=== PATIENT | female | born 1950 | race African-American/Black ===

== ENCOUNTER → 2022-04-18 | Outpatient (CLI) | payer BC, MEDICARE ==
--- NOTE | 2022-04-18 16:55 | US ---
EXAMINATION TYPE: US mass soft tissue chest/back DATE OF EXAM: 04/18/2022 COMPARISON: NONE CLINICAL HISTORY: L05.91 PILONIDAL CYST WITHOUT ABSCESS M54.50 LOW BACK PAIN. Lump on lower back. Scanned left lower back area of lump. No abnormalities seen. IMPRESSION: 1. Negative ultrasound.
== END | disposition home or self-care (01) ==
LOC: RADUSWWP 12:43
PROVIDERS: ATTEND Family Medicine
DX: L05.91 Pilonidal cyst without abscess (principal); M54.50 Low back pain, unspecified